=== PATIENT | male | born 1985 | race Hispanic/Latino ===

== ENCOUNTER 2020-06-07 12:21 | Emergency (ER) | payer OTHER ==
[~2020-06-07] VITALS: Ht 175.3 cm; Wt 65.0 kg
[2020-06-07] MEDS ORDERED: MUPIROCIN2 % EX (12:55)
[2020-06-07] MEDS ORDERED: DOXYCYCL HYC100 M4 PO (12:55)
[2020-06-07 13:11] VITALS: BP 122/71
== END 2020-06-07 13:05 | disposition home or self-care (01) | DRG 603 ==
LOC: ED 12:21
DX: L03.012 Cellulitis of left finger (principal); L03.011 Cellulitis of right finger